=== PATIENT | female | born 1970 | race Caucasian/White ===

== ENCOUNTER 2016-12-22 18:09 | Inpatient (IN) | payer OTHER ==
--- NOTE | ~2016-12-22 | CR72 ---
[facility] A Service of [facility] RADIOLOGY TEXT RESULTS PATIENT: SAM LEE LOCATION: [facility] [id number] : [birth year] UNIT #: [id number] AGE: [address]: Sun Lamb MD SEX: F ORDER DR: [id number] [facility] [address] [facility]. [place], [place] [address] [id number] MR#: [id number] Acc #: [id number] NAME: SAM LEE. : 1970 SEX: F STUDY DATE/TIME: 12/22/2016 19:03 UNIT: [facility] ROOM: 72291 STUDY DESCRIPTION: CR Chest Single View Portable Attending Physician: Silvana Pizano M.D. Ordering Physician: Kelechi Kimball M.D. Primary Care Physician: Zainab Fish MEDICAL IMAGING REPORT This report is preliminary unless electronic signature is present EXAM Portable chest, 12/22. INDICATION Cough, congestion started today. COMPARISON 04/11/14 FINDINGS A single AP portable view of the chest shows both lungs to be clear. The heart is normal in size. The mediastinal contour is normal. No significant bone abnormalities are seen. IMPRESSION Normal portable chest. Dictated by... Javier Larose Jr., M.D. THIS IS AN ELECTRONICALLY VERIFIED REPORT Javier Larose Jr., M.D. at 12/23/2016 12:58 PM ALONSO/shailesh TD: 12/22/2016 22:23 JOB #: [id number] MEDICAL IMAGING REPORT Page 1 of 1 COPY
--- NOTE | ~2016-12-22 | HP ---
Unit #: [id number] #: [id number] Patient: SAM LEE [id number] [address] [address] [id number] I MR#: [id number] NAME: SAM LEE. ROOM: 69974 Age: 46 Sex: F Admission Date: 12/22/2016 : 1970 Attending Physician: Sun Lamb M.D. Primary Care Physician: Zainab Fish HISTORY AND PHYSICAL CHIEF COMPLAINT Elevated blood sugar, nausea. DISCUSSION This is a 46-year-old female who has history of type 1 diabetes since 1996. Has a history of hyperlipidemia, hypothyroid, hypertension. She presented to the emergency room with the chief complaint of having polyuria, polydipsia. She said she checked her blood sugar at home, which showed a high reading. She had some nausea. She came to the emergency room. She was found to be in DKA. ABG showed pH of 7.05, and eventually she was admitted for DKA. She feels nauseated. She says she has been having some polyuria, polydipsia but no chest pain, no diaphoresis, no palpitations. Denies any other complaints. PAST MEDICAL HISTORY 1. History of type 1 diabetes since 1996. 2. Hypothyroid. 3. Dyslipidemia. 4. Hypertension. 5. History of pulmonary nodule. PAST SURGICAL HISTORY 1. History of tonsillectomy. 2. Bilateral knee arthroscopy for meniscus tear. 3. History of x2. 4. History of endometrial ablation. 5. Thyroidectomy. 6. Bilateral tubal ligation. ALLERGIES Codeine, oxycodone, penicillin. SOCIAL HISTORY She smokes 1 pack daily. She denies alcohol. She denies illicit drug use. She lives at home with her . FAMILY HISTORY Noncontributory to current case. MEDICATIONS FROM HOME 1. She says she takes Levemir 30 units q.h.s. 2. Synthroid 112 mcg daily. 3. NovoLog sliding scale. 4. Lipitor. Unit #: [id number] #: [id number] Patient: SAM LEE 5. Blood pressure medication. She does not remember the name. REVIEW OF SYSTEMS All review of systems is negative except as in history of present illness. PHYSICAL EXAMINATION GENERAL: Middle-aged female lying in bed comfortably, currently not in any distress. She is alert, awake, oriented x3. CURRENT VITALS: Temperature is 98.1, heart rate 136, respirations 16, blood pressure 128/83, oxygen 100% on room air. HEENT: Pupils are equal and reactive to light and accommodation. Head is normocephalic and atraumatic. NECK: Neck is supple. No JVD. HEART: S1, S2. Regular rhythm. Tachycardia. LUNGS: Lungs are clear to auscultation bilaterally. No rhonchi. No wheezing. ABDOMEN: Abdomen is soft, nontender, nondistended. Bowel sounds are positive. EXTREMITIES: Inspection is normal. No cyanosis. No clubbing. No edema. NEUROLOGIC: No focal neurologic deficits. DIAGNOSTIC STUDIES LABORATORY WORKUP: Chemistry - Sodium 130, potassium 4.7, glucose 337, BUN 24, creatinine 1.1. Beta hydroxybutyrate 6.85. CBC - White count 9, hemoglobin 15, hematocrit 47, platelets 365. UA - Positive glucose more than 1,000. ABG shows pH 7.05, CO2 16.8, CO2 116. IMAGING: Chest x-ray negative. ASSESSMENT AND PLAN 1. DKA with history of type 1 diabetes. Admit the patient to ICU. Start on insulin drip on DKA protocol. Follow the protocol. 2. History of hypothyroid. 3. Dyslipidemia. 4. Hypertension. 5. History of pulmonary nodule. 6. DVT and GI prophylaxis. Will place the patient on Protonix and Lovenox. Dictated by Joseluis Ríos TD: 12/23/2016 09:24 JOB #: [id number] Unit #: [id number] #: [id number] Patient: SAM LEE HISTORY AND PHYSICAL Page 1 of 1 X X HISTORY AND PHYSICAL
--- NOTE | ~2016-12-22 | DS ---
Unit #: [id number] #: [id number] Patient: SAM LEE [id number] [address] [address] [id number] I MR#: [id number] NAME: SAM LEE. ROOM: 215 Age: 46 Sex: F Admission Date: 12/22/2016 : 1970 Discharge Date: 12/24/2016 Attending Physician: Gonzalez Rowland M.D. Primary Care Physician: Zainab Fish DISCHARGE SUMMARY DISCHARGE DIAGNOSES 1. Diabetic ketoacidosis. 2. Type 1 diabetes. 3. Hypertension. HOSPITAL COURSE The patient is a 46-year-old female admitted to [facility] secondary to diabetic ketoacidosis. She states that she had been having polyuria and polydipsia for several days and, ultimately, came to the emergency department when her blood sugar readings were simply "high." She noted significant nausea. In the emergency department, ABG revealed a pH of 7.05. The patient was started on fluids and IV insulin. Her acidosis resolved relatively quickly. Her initial anion gap was 23. Initially, her creatinine was 1.1. It is currently 0.5. She was never hyperkalemic and only had minimal problems with hypokalemia. Given the resolution of the patient's symptoms and resolution of her acidosis, the patient is being discharged home. She is having no trouble eating and has requested discharge. Her insulin has been adjusted as dictated below. DISCHARGE MEDICATIONS 1. Lipitor 20 mg daily. 2. Lisinopril 5 mg daily. 3. Levemir 30 units in the morning. 4. NovoLog 5 units plus sliding scale with meals. 5. Synthroid 125 mcg p.o. daily. FOLLOWUP The patient should follow up with Dr. Redman in four weeks. DISCHARGE DIET The patient is being discharged on a constant carb diet with 45 g carbs at each meal. Dictated by... Gonzalez Rowland M.D. CAM/df Unit #: [id number] #: [id number] Patient: SAM LEE TD: 12/24/2016 16:43 JOB #: [id number] DISCHARGE SUMMARY Page 1 of 1 X Gonzalez Rowland MD DISCHARGE SUMMARY
--- NOTE | ~2016-12-22 | CO ---
Unit #: [id number] #: [id number] Patient: SAM LEE [id number] [address] [place], [place] [address] [id number] I MR#: [id number] NAME: SAM LEE. ROOM: 02278 Age: 46 Sex: F Admission Date: 12/22/2016 : 1970 Attending Physician: Sun Lamb M.D. Primary Care Physician: Zainab Fish Consultation Date: 12/23/2016 CONSULTATION REPORT REASON FOR CONSULTATION Critical care management. CHIEF COMPLAINT Elevated blood sugar. HISTORY OF PRESENT ILLNESS This is a 46-year-old female who came to the emergency room and found to have a blood glucose of 563, admitted with impression of diabetic ketoacidosis, complaining of generalized aches and pain, also complaining of nausea and some vomiting. PAST MEDICAL HISTORY Significant for diabetes, hypertension, hypothyroidism, tonsillectomy, knee surgery, , endometrial ablation, thyroidectomy, bilateral knee replacement, bilateral tubal ligation. ALLERGIES Codeine, oxycodone, penicillin. MEDICATIONS Lipitor, Lantus, Pravachol, Synthroid. FAMILY HISTORY Unknown as per records. REVIEW OF SYSTEMS Positive for pallor. No edema, no cyanosis, and no jaundice. The rest is as per history of present illness. The rest of the twelve point review of system has been reviewed and is negative. PHYSICAL EXAMINATION VITAL SIGNS: Temperature 97, pulse 96, respiration 24, blood pressure 100/68. NEUROLOGIC: Awake, alert and oriented. No neuro deficit. HEENT: PERRLA. +1. NECK: Supple. No JVD. CHEST: Bilateral air entry. Bilateral mild rhonchi. GI: Nontender, soft. Bowel sounds positive. EXTREMITIES: No edema. SKIN: No rashes, no ulcers. LYMPHATICS: No lymphadenopathy. DIAGNOSTIC STUDIES Unit #: [id number] #: [id number] Patient: SAM LEE LABS AND IMAGING: Has been reviewed. ASSESSMENT AND PLAN 1. Diabetic ketoacidosis, type 1 insulin. 2. Hypothyroidism. 3. Dyslipidemia. 4. Hypertension. 5. History of pulmonary nodule likely COPD. 6. Active smoker. PLAN Continue patient on DK protocol, IV fluids. Continue oxygen and bronchodilator and will review the imaging. Please see orders for dictated plan. Thank you very much for this consultation. Dictated by... Joseluis Madrid/sumanth TD: 12/23/2016 12:30 JOB #: [id number] CONSULTATION REPORT Page 1 of 1 X Brando Marcus MD CONSULTATION REPORT
--- NOTE | ~2016-12-22 | EKG ---
PATIENT: SAM LEE UNIT #: [id number] Ventricular Rate: 123 BPM Atrial Rate: 123 BPM P-R Interval: 124 ms QRS Duration: 86 ms Q-T Interval: 328 ms QTC Calculation(Bezet): 469 ms P [place]: 69 degrees Calculated R [place]: 66 degrees Calculated T [place]: 4 degrees Diagnosis Line: Sinus tachycardia Diagnosis Line: Nonspecific ST and T wave abnormality Diagnosis Line: Abnormal ECG Diagnosis Line: When compared with ECG of 11-APR-2014 11:43, Diagnosis Line: Nonspecific T wave abnormality no longer evident Diagnosis Line: in Lateral leads Diagnosis Line: Confirmed by RENETTA LANDRUM MD ([id number]) on Diagnosis Line: 12/25/2016 3:15:46 PM INTERPRETING MD: DIALLO WAGNER
--- NOTE | ~2016-12-22 | A ---
[facility] Nutrition Therapy DATE: 12/24/16 Patient: SAM LEE Physician: KIM Address: [address] Room/Bed: [address] [place] [address], Zip: [place] [address] Admit Date: 12/22/16 Date of : [birth year] Height: 4 10 Weight: 130 58.96 NUTRITIONAL ASSESSMENT: REASON: 4 POINTS NUTRITION SCREEN RISK RE: 30# WEIGHT LOSS, AND FOR ADMISSION DX CONSULT RE: 30# WEIGHT LOSS IN 90 DAYS 46 yo female admitted for DKA PMH: Type 1 DM, HLD, HTN, hypothyroid s/p thyroidectomy, dyslipidemia Anthropometrics: Ht: 4'10" Wt: 59 kg BMI: 27.2 Labs: Na+ 134 Gluc 220 Creat 0.5 Ca++ 8.0 Alb 3.1 Phos 2.2 Accuchecks 337 HgbA1C 11.6 Meds: Lipitor, mag-ox, novolog, NaCl, synthroid, zofran, protonix, sodium bicarbonate I/O & Bowel function: 2190/1600, last BM 12/22 Skin Integrity: no breakdown or edema noted Diet: 45 gram CCD Assessment: Chart reviewed, events noted. Pt admitted for DKA with polyuria and nausea. RD seeing pt for noted 30# weight loss in 90 days. Per information in [facility], the pt has Type 1 DM, diagnosed in 1996. A1C and accuchecks elevated as noted above. RD attempted pt interview, and community health advisor reports that the pt is off of the floor smoking. RD left printed 45 gram consistent carbohydrate diet materials at bedside. RD spoke with RN, who reports that the pt has a good appetite, and has been consuming 100% of hospital meals in addition to what her brings her to eat. Pt returned to her room while RD charting. RD spoke with the pt at bedside. Pt had several questions about her diet, reporting that she is familiar with reading labels and how to count carbs; however, she states that she definitely does not consume 3 meals per day or eat 45 grams carbs per meal. 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 RD encouraged meal planning and discouraged skipping meals. Pt states that she has likely lost weight due to poor intake/ work schedule. Pt voiced that she is motivated to make dietary changes. Dx: Impaired glycemic control RT poorly controlled DM, likely poor compliance AEB HgbA1C 11.6, accuchecks 337. 2) Unplanned weight loss RT possibly poor compliance and habits, PMH AEB 30# weight loss [facility] Nutrition Therapy DATE: 12/24/16 Patient: SAM LEE Physician: KIM Address: [address] [place] [address] Room/Bed: [address] [place] [address], Zip: [place] [address] Admit Date: 12/22/16 Date of : [birth year] Height: 4 10 Weight: 130 58.96 noted in 90 days in nutrition screen. Intervention: 1. 45 gram CCD 2. Glucerna if PO intake declines Monitoring, Evaluation and Goals: 1. Oral intake; tolerate >50-75% of meals 2. Improve labs; glucose, A1C, phos 3. Weight; prevent unintentional weight loss Recommendations: 1. Continue 45 gram CCD as tolerated. 2. If the pt's PO intake declines to less than 50% of meals, order Glucerna once daily- BID (depending on intake). 3. Encourage diet compliance. Pt would benefit from seeing an outpatient RD for accountability. Pt is at mild-moderate nutritional risk. RD will follow per protocol. Respectfully, MELISSA RAMSEY RD, LD Food and Nutritional Services [facility] cc: client file
--- NOTE | ~2016-12-22 | CO ---
Unit #: [id number] #: [id number] Patient: SAM LEE [id number] [address] [place], [place] [address] [id number] I MR#: [id number] NAME: SAM LEE. ROOM: 215 Age: 46 Sex: F Admission Date: 12/22/2016 : 1970 Attending Physician: Gonzalez Rowland M.D. Primary Care Physician: Zainab Fish Consultation Date: 12/23/2016 CONSULTATION REPORT REQUESTING PHYSICIAN Dr. Lamb. REASON FOR CONSULTATION Diabetic ketoacidosis. HISTORY OF PRESENT ILLNESS This is a 46-year-old female with history of type 1 diabetes mellitus diagnosed in 1996 and history of multiple DKA in the past, who presented to the emergency room for not feeling well. She says she has started feeling bad about a week ago when she had an ear infection for which she has been taking antibiotics, and over the last couple of days, her blood sugar has been elevated as increasing frequency of urination and increased thirst, and blood sugar has been running high, and she had some nausea and vomiting. In the emergency room, she was found to be in a diabetic ketoacidosis with a pH of 7.0 and blood sugars were 395 with a CO2 of 7. She was started on insulin drip per DKA protocol. I have been asked to see the patient for further management. PAST MEDICAL HISTORY Type 1 diabetes mellitus, hyperlipidemia, hypothyroidism, hypertension, and history of diabetic ketoacidosis in the past. PAST SURGICAL HISTORY Tonsillectomy, knee arthroscopy, , endometrial ablation, thyroidectomy, and bilateral tubal ligation. ALLERGIES Codeine, oxycodone, and penicillin. SOCIAL HISTORY Smokes one pack per day. No alcohol. No illicit drugs. Lives at home with her . 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 FAMILY HISTORY Noncontributory. MEDICATIONS Levemir 30 units at bedtime, Synthroid 112 mcg daily, NovoLog per sliding scale, Lipitor dose is unknown. She takes some blood pressure medicine, doses unknown. REVIEW OF SYSTEMS GENERAL: Feeling weak and tired. No fever or chills. Unit #: [id number] #: [id number] Patient: SAM LEE PULMONARY: No cough or sputum. CARDIAC: No chest pains or palpitations. GI: Has some nausea, but no vomiting at this time. SKIN: No rashes. ENDOCRINE: Positive polyuria and polydipsia. EXTREMITIES: No ulcers or amputations. NEUROLOGIC: No focal weaknesses. Rest of the review of system is unremarkable. PHYSICAL EXAMINATION GENERAL: He is awake, alert, and oriented to time, place, and person. VITAL SIGNS: Temperature 97.3, pulse 94, respirations 18, and blood pressure 112/71. HEENT: EOMI. Pupils are equally reactive to light. NECK: Supple. No thyromegaly noted. CHEST: Good air entry. CVS: Regular rhythm. S1 and S2. ABDOMEN: Soft and nontender. Bowel sounds positive. EXTREMITIES: No edema noted. LABORATORY DATA Labs were reviewed. Creatinine is 0.4, sodium 134, potassium 3.3, and CO2 of 17. Phosphorus 1.8. Calcium is 8.3. A1c is 11.6. ASSESSMENT 1. Diabetic ketoacidosis, which has improved at this time. 2. Hypokalemia. 3. Hyponatremia, improved. 4. Hypophosphatemia. 5. Hypothyroidism. PLAN The patient is mentally awake and alert. She has no more vomiting. At this time, she is hungry. We will start advancing the diet. Start the patient on Levemir 25 units daily, NovoLog 5 units each meal plus supplemental insulin. Discontinue the insulin drip. Change IV fluids to normal saline at 100 mL an hour. Accu-Cheks will be monitored. Transfer the patient to the med/surg floor. Note, the patient was seen in the ER. Dictated by... Joseluis Keen/monalisa TD: 12/23/2016 23:19 JOB #: [id number] Unit #: [id number] #: [id number] Patient: JESUSSAM Skelton CONSULTATION REPORT Page 1 of 1 X Ayo Redman MD CONSULTATION REPORT
[~2016-12-22 18:09] MED LIST: ADVIL200 M1 PO; ALBUTEROL17 G1 IH; ANAPROX DS550 M1 PO; APIDRA (NF100 UNITS/ SQ; APIDRA100 U/ML SQ; AURALGAN EAR DR14 ML AD; AURODEX EAR DRO15 ML OT; BACTRIM DS TABL1 TA1 PO; CHOLESTEROL PILL; CLEOCIN HCL150 MG PO; CLEOCIN HCL300 M1 PO; CLEOCIN PO; CLONAZEPAM0.5 MG PO; DOXYCYCLINE HY100 M1 PO; GLUCOTROL PO; HUMALOG100 U/ML SUBQ; HYDROCODON-ACE1 EAC7 PO; INSULIN PUMP R1 EACH; LANTUS100 U/ML SQ; LANTUS100 U/ML SUBQ; LANTUS100 UNITS/ SUBQ; LEVAQUIN750 MG PO; LEVOXYL125 MC1 PO; LISINOPRIL2.5 MG PO; MAGIC MOUTHWASH; NAPROSYN-EC500 M1 PO; NOVOLIN R100 U/ML INJ; NOVOLOG100 U/M1; PHENERGAN DM1 ML PO; PHENERGAN W/CO120 ML PO; PRAVACHOL PO; SYNTHROID PO; SYNTHROID0.2 MG PO; VENTOLIN5 MG/ML IH; VIBRAMYCIN100 M1 PO; VICODIN 5/1 TAB 5/50 PO; VITAMIN D50000 UNIT PO; ZESTRIL2.5 M1 PO; ZITHROMAX PO
[2016-12-22 19:22] LABS: ARTERIAL BLD GAS O2 SATURATION 95.2 % (90.0-100.0); ARTERIAL BLOOD GAS CARBOXY HB 1.2 %sat (0.0-9.0); ARTERIAL BLOOD GAS HCO3 4.6 mmol/L
[2016-12-22 19:26] LABS: ARTERIAL BLOOD GAS ALLEN TEST NORMAL; ARTERIAL BLOOD GAS ART SITE RIGHT RADIAL; ARTERIAL BLOOD GAS DELIVERY ROOM AIR; ARTERIAL BLOOD GAS PCO2 16.8 mmHg (35.0-45.0); ARTERIAL DRAW? YES
[2016-12-22 19:42] LABS: URINE SOURCE CLEAN CATCH
[2016-12-22 19:47] LABS: URINE APPEARANCE CLEAR; URINE BILIRUBIN NEG (NEG); URINE BLOOD TRACE (NEG); URINE COLOR YELLOW; URINE GLUCOSE >1000 MG/DL (NEG); URINE KETONE 3+ (NEG); URINE LEUKOCYTE ESTERASE NEG (NEG); URINE NITRATE NEG (NEG); URINE PROTEIN 1+ (NEG); URINE SPECIFIC GRAVITY 1.024 (1.003-1.035); URINE UROBILINOGEN 0.2 MG/DL (NEG)
[2016-12-22 19:50] LABS: URBCS1 AUWI 0-2 /[HPF] (0-2); URINE BACTERIA AUWI NEG (NEGATIVE); URINE SQUAMOUS EPITHELIAL CELL NONE SEEN /[HPF]; UWBCS1 AUWI 0-2 (0-5)
[2016-12-22 20:08] LABS: CULTURE INDICATED? NO
[2016-12-22 20:36] LABS: BASOPHIL# 0.1 X10e3 (0-0.3); BASOPHIL% 1.1 % (0-2.5); EOSINOPHIL% 0.1 % (0.0-7.0); HEMATOCRIT 47.3 % (35.0-45.0); HEMOGLOBIN 15.6 gm/dL (12.0-16.0); LYMPHOCYTE# 1.4 X10e3 (1.0-3.5); LYMPHOCYTE% 14.5 % (17.0-45.0); MEAN CELL VOLUME 95.3 FL (83-96); MEAN CORPUSCULAR HEMOGLOBIN 31.4 PG (28-34); MEAN CORPUSCULAR HGB CONC 32.9 g/dL (30-36); MEAN PLATELET VOLUME 8.2 FL (6.5-11.5); MONOCYTE# 0.9 X10e3 (0-1.0); MONOCYTE% 9.3 % (3.0-12.0); NEUTROPHIL# 7.4 X10e3 (1.5-7.1); PLATELET COUNT 365 X10e3 (140-420); RED BLOOD COUNT 4.96 X10e (3.90-5.30); RED CELL DISTRIBUTION WIDTH 13.2 % (11.0-15.5); WHITE BLOOD COUNT 9.9 X10e3 (4.0-10.5)
[2016-12-22 20:37] LABS: DIFF IND NO
[2016-12-22 21:46] LABS: ALBUMIN SERUM 4.5 g/dL (3.5-5.0); BETA HYDROXYBUTYRATE 6.85 MMOL/L (0.02-0.27); BILIRUBIN,TOTAL 1.3 mg/dL (0.2-2.0); BUN/CREATININE RATIO 21.81; CALCIUM SERUM 9.5 mg/dL (8.4-10.2); CREATININE SERUM 1.1 mg/dL (0.6-1.4); GLOM FILT RATE Estimated 60.2 mL/min (>60); POTASSIUM 4.7 mmol/L (3.5-5.1); PROTEIN TOTAL SERUM 8.8 g/dL (6.0-8.3)
[2016-12-22] MEDS ORDERED: SYNTHROID125 PO (22:45)
[2016-12-22] MEDS ORDERED: LEVEMIR100 UNITS/ INJ (22:48)
[2016-12-22] MEDS ORDERED: LISINOPRIL5 MG PO (22:49)
[2016-12-22] MEDS ORDERED: LIPITOR20 MG PO (22:57)
[2016-12-22] MEDS ORDERED: NOVOLOG100 U/ML INJ (23:00)
[2016-12-23 09:35] LABS: BLOOD UREA NITROGEN 14 mg/dL (9-23); CALCIUM SERUM 8.4 mg/dL (8.4-10.2); CARBON DIOXIDE 15 mmol/L (22-31); CHLORIDE 109 mmol/L (100-111); CREATININE SERUM 0.5 mg/dL (0.6-1.4); GLOM FILT RATE Estimated 116.1 mL/min (>60); GLUCOSE FASTING 76 mg/dL (70-110); PHOSPHOROUS 1.8 mg/dL (2.5-4.6); POTASSIUM 3.6 mmol/L (3.5-5.1); SODIUM 133 mmol/L (135-145)
[2016-12-23 09:36] LABS: AMYLASE <7 U/L (0-46); LIPASE <10 U/L (22-51)
[2016-12-23 14:14] LABS: BUN/CREATININE RATIO 27.5; CALCIUM SERUM 8.3 mg/dL (8.4-10.2); CREATININE SERUM 0.4 mg/dL (0.6-1.4); GLOM FILT RATE Estimated 124.9 mL/min (>60); POTASSIUM 3.3 mmol/L (3.5-5.1)
[2016-12-23 21:26] LABS: BUN/CREATININE RATIO 15.71; CREATININE SERUM 0.7 mg/dL (0.6-1.4); GLOM FILT RATE Estimated 103.9 mL/min (>60); POTASSIUM 4.5 mmol/L (3.5-5.1)
[2016-12-24 01:56] LABS: MEAN PLATELET VOLUME 7.7 FL (6.5-11.5); RED BLOOD COUNT 4.17 X10e (3.90-5.30); RED CELL DISTRIBUTION WIDTH 13.2 % (11.0-15.5); WHITE BLOOD COUNT 8.6 X10e3 (4.0-10.5)
[2016-12-24 02:02] LABS: HEMOGLOBIN 12.9 gm/dL (12.0-16.0); MEAN CELL VOLUME 91.3 FL (83-96)
[2016-12-24 02:23] LABS: ALBUMIN SERUM 3.1 g/dL (3.5-5.0); BILIRUBIN,TOTAL 0.4 mg/dL (0.2-2.0); CREATININE SERUM 0.5 mg/dL (0.6-1.4); GLOM FILT RATE Estimated 116.1 mL/min (>60); MAGNESIUM 1.8 mg/dL (1.6-3.0); PHOSPHOROUS 2.2 mg/dL (2.5-4.6); POTASSIUM 3.5 mmol/L (3.5-5.1); PROTEIN TOTAL SERUM 5.8 g/dL (6.0-8.3)
[2016-12-24 14:20] LABS: CALCIUM SERUM 8.4 mg/dL (8.4-10.2); CREATININE SERUM 0.5 mg/dL (0.6-1.4); GLOM FILT RATE Estimated 116.1 mL/min (>60); POTASSIUM 3.9 mmol/L (3.5-5.1)
[2016-12-24] MEDS ORDERED: NOVOLOG100 U/ML SUBQ (16:09)
== END 2016-12-24 16:51 | disposition home or self-care (01) | DRG 638 ==
LOC: CED 18:09 → CEDOF 22:00 → CED 22:09 → CEDOF 22:09 → C2A 12-23 18:24 → CEDOF 12-23 18:24 → C2A 12-24 07:44
PROVIDERS: Emergency Medicine; Internal Medicine
PROC: 05H533Z Insertion of Infusion Device into Right Subclavian Vein, Percutaneous Approach (ICD-10-PCS; principal; 2016-12-23)
PROC: B546ZZA Ultrasonography of Right Subclavian Vein, Guidance (ICD-10-PCS; 2016-12-23)
DX: E10.10 Type 1 diabetes mellitus with ketoacidosis without coma (principal); E87.1 Hypo-osmolality and hyponatremia; E83.39 Other disorders of phosphorus metabolism; I10 Essential (primary) hypertension; Z79.4 Long term (current) use of insulin; E78.5 Hyperlipidemia, unspecified; E03.9 Hypothyroidism, unspecified; Z88.0 Allergy status to penicillin; Z98.51 Tubal ligation status; F17.210 Nicotine dependence, cigarettes, uncomplicated; E87.6 Hypokalemia; R91.1 Solitary pulmonary nodule; Z96.653 Presence of artificial knee joint, bilateral
CPT/HCPCS: 36415; 36600; 71010; 80048; 80053; 81003; 82010; 82150; 82803; 82947; 83036; 83690; 83735; 84100; 84443; 84703; 85025; 85027; 87040; 93005; 94760; 96361; 96374; 99285; C9113; J1650; J1815; J2405

== ENCOUNTER → 2017-02-12 | Outpatient (CLI) | payer OTHER ==
[~2017-02-12] MED LIST changes: +LEVEMIR100 UNITS/ INJ; +LIPITOR20 MG PO; +LISINOPRIL5 MG PO; +NOVOLOG100 U/ML INJ; +NOVOLOG100 U/ML SUBQ; +SYNTHROID125 PO
--- NOTE | ~2017-02-12 | CT57 ---
[facility] A Service [facility] RADIOLOGY TEXT RESULTS PATIENT: SAM LEE LOCATION: [facility] : [birth year] UNIT #: [id number] AGE: [address]: Brando Marcus MD SEX: F ORDER DR: [id number] [facility] [place], [place] [address] [id number] MR#: [id number] Acc #: [id number] NAME: SAM LEE. : 1970 SEX: F STUDY DATE/TIME: 02/12/2017 12:57 UNIT: [facility] ROOM: STUDY DESCRIPTION: CT Chest Wo Cont Attending Physician: Brando Marcus M.D. Referring Physician: Brando Marcus M.D. Ordering Physician: Brando Marcus M.D. MEDICAL IMAGING REPORT This report is preliminary unless electronic signature is present EXAM CT of the chest without contrast INDICATIONS Followup pulmonary nodule. TECHNIQUE CT of the chest was performed without contrast. Coronal and sagittal reformatted images were obtained. This CT exam was performed with one or more of the following radiation dose reduction techniques: automatic exposure control, adjustment of mA and/or kV according to patient size, and iterative reconstruction. COMPARISON STUDIES 04/12/2014. FINDINGS There is mild emphysema. There is a stable benign micronodule in the left upper lobe on image 11. There is a stable benign subcentimeter nodule in the left lower lobe on image 34. There is no suspicious lymphadenopathy. There is no pleural effusion. Limited imaging of the upper abdomen shows a hypodense lesion in the posterior aspect of the right lobe of liver which, on the previous scan from 2012, was shown to represent a hemangioma. There is also an area of low attenuation adjacent to the falciform ligament in the right lobe which has a characteristic appearance of focal fatty infiltration. The bone windows are unremarkable. IMPRESSION Stable tiny subcentimeter pulmonary nodules which are stable since 2013 and should be benign. No new nodule. [facility] A Service of [facility] RADIOLOGY TEXT RESULTS PATIENT: SAM LEE LOCATION: [facility] : 70 UNIT #: [id number] AGE: [address]: Brando Marcus MD SEX: F ORDER DR: Dictated by... Amilcar Bianchi M.D. THIS IS AN ELECTRONICALLY VERIFIED REPORT Amilcar Bianchi M.D. at 02/15/2017 4:01 PM ARS/pcl TD: 02/13/2017 18:23 JOB #: [id number] MEDICAL IMAGING REPORT Page 1 of 1 COPY
== END | disposition home or self-care (01) ==
LOC: CRC 08:30
DX: R91.1 Solitary pulmonary nodule (principal); R06.02 Shortness of breath; F17.210 Nicotine dependence, cigarettes, uncomplicated
CPT/HCPCS: 71250; 94060; 94726; 94729